=== PATIENT | female | born 1950 | race Caucasian/White ===

== ENCOUNTER 2020-02-08 17:43 | Inpatient (IN) | payer OTHER, SELFPAY ==
[~2020-02-08] VITALS: Ht 160 cm; Wt 145.1 kg
[~2020-02-08 17:43] MED LIST: ATEN100T PO; CEFAZOLIN 1 GM IVPB PREMIX 50 ML IV ONE; DILT180C89 PO; ETOMIDATE 20 MG/ 10 ML VIAL (AMIDATE) IVP ONE; GLYCOPYRROLATE 0.2 MG/ML VIAL IJ ONE; HYDR25TA4 PO; HYDROmorphone 2 MG/ML VIAL IVP ONE; INSU100V9 SQ; LIDOCAINE 1% 10 MG/ML, 20 ML MDV IM ONE; LISI40TA4 PO; METOCLOPRAMIDE HCL 10 MG/2 ML VIAL IVP ONE; NS 1000 ML IV.SOLN IV ONE; NS IRRIG SOLN 1000 ML IR ONE; ONDANSETRON HCL 4 MG/2 ML VIAL IVP ONE; PHENYLEPHRINE HCL 10 MG/ML VIAL (NEOSYNEPHRINE) IV ONE; ROCURONIUM BROMIDE 10 MG/ML (ZEMURON) IV ONE; SEVOFLURANE 15 MIN GAS INH ONE; ePHEDrine sulfate 50 MG/ML VIAL IVP ONE; fentaNYL CITRATE 250 MCG/5 ML AMP IV ONE
[2020-02-08 17:48] VITALS: BP_SYST 122
--- NOTE | 2020-02-08 17:48 | NUR ---
Patient to ER bed 04 to gown for evaluation. Side rails up. Report given to ELSA Pillai
--- NOTE | 2020-02-08 18:01 | NUR ---
Pt came to ER via BLS ambulance after she fell this morning at 0600. Pt complains of L leg pain 7/10 with activity, resting in gurney, noapparent distress, VSS
--- NOTE | 2020-02-08 18:29 | NUR ---
ER Dr. Lovett at bedside examining patient.
[2020-02-08] MEDS ORDERED: KETOROLAC TROMETHAMINE 60 MG/2 ML VIAL IM ONE (18:30)
[2020-02-08] MEDS ORDERED: BACITRACIN 1 GM OINT TP ONE (18:50)
--- NOTE | 2020-02-08 19:21 | NUR ---
REPORT RECEIVED FROM ELSA NGUYỄN
--- NOTE | 2020-02-08 19:45 | NUR ---
Patient transported to radiology via GURNEY, accompanied by STAFF.
--- NOTE | 2020-02-08 20:57 | NUR ---
PORTABLE X-RAY AT THE BEDSIDE
[2020-02-08] MEDS ORDERED: NACL 0.9% 1,000 ML IV ONE (21:30)
--- NOTE | 2020-02-08 21:45 | NUR ---
LONG POSTERIOR LEG splint applied to LEFT LEG. DORSALIS PEDIS AND POSTERIOR TIBIAL pulses noted. Capillary refill <3 seconds. Patient has ability to move non-splinted digits. Has sensation present to affected site. Skin color within normal limits. Applied for pain management control.
--- NOTE | 2020-02-08 22:00 | NUR ---
# 20 gauge angiocath placed to LAC. Use of asceptic technique. Opsite placed over site. Blood return noted. Blood for lab drawn from site. Flushed with 10 cc of normal saline. No evidence of infiltration noted. Patient tolerated well.
[2020-02-08] MEDS ORDERED: MORPHINE 4 MG/ML INJ. SYRINGE IVP PRN (22:15)
[2020-02-08] MEDS ORDERED: D5/0.45 NS 1,000 ML IV SCH (22:15)
[2020-02-08] MEDS ORDERED: LEVO25TA7 PO (22:25)
[2020-02-08] MEDS ORDERED: LOSA25TA18 PO (22:25)
[2020-02-08] MEDS ORDERED: LIP20 PO (22:25)
--- NOTE | 2020-02-08 22:25 | NUR ---
Medication reconciliation completed with information provided by AMEYA Ulloa RN. Any prior medication reconciliation on file was reviewed and corrected.
[2020-02-08 22:34] LABS: BASOPHILS % (AUTO) 0.3 % (0.0-2.0); EOSINOPHILS % (AUTO) 0.2 % (0.0-4.0); HEMATOCRIT 31.4 % (36-48); HEMOGLOBIN 10.5 g/dL (12.0-16.0); LYMPHOCYTES # (AUTO) 0.6 K/uL (1.0-5.5); LYMPHOCYTES % (AUTO) 7.6 % (20.5-51.5); MEAN CORPUSCULAR HEMOGLOBIN 31 pg (27-31); MEAN CORPUSCULAR HGB CONC 34 % (32-36); MEAN CORPUSCULAR VOLUME 91 fL (79.0-98.0); MONOCYTES # (AUTO) 0.9 K/uL (0.0-1.0); MONOCYTES % (AUTO) 10.8 % (1.7-9.3); NEUTROPHILS # (AUTO) 6.6 K/uL (1.8-7.7); NEUTROPHILS % (AUTO) 81.1 % (40.0-70.0); PLATELET COUNT (AUTO) 309 K/uL (130-430); RED BLOOD CELL COUNT(AUTO) 3.43 MIL/uL (4.2-6.2); RED CELL DISTRIBUTION WIDTH 13.8 % (9.0-15.0); WHITE BLOOD COUNT (AUTO) 8.2 K/uL (4.8-10.8)
--- NOTE | 2020-02-08 22:34 | NUR ---
Patient will be admitted to care of DR. ADAM. Admitted to MS unit. Will go to room 101B. Belongings list completed. Complete and up to date summary report printed. SBAR report to be given at bedside with opportunity for questions.
[2020-02-08 22:46] LABS: CALCIUM 8.2 mg/dL (8.4-11.0); CREATININE 1.84 mg/dL (0.55-1.30); POTASSIUM 3.2 mmol/L (3.5-5.1)
[2020-02-08 22:50] LABS: PROTHROMBIN TIME 10.4 SECS (9.5-12.5)
[2020-02-08 22:52] LABS: ALBUMIN 1.6 g/dL (3.4-4.8); TOTAL BILIRUBIN 0.4 mg/dL (0.0-1.0)
[2020-02-08] MEDS ORDERED: POTASSIUM CHLORIDE 10 MEQ TAB.PRT.SR PO ONE (23:00)
--- NOTE | 2020-02-08 23:39 | NUR ---
ADMISSION NOTE Received patient from ER via gurney. Patient admitted with diagnosis of LEFT FEMUR FRACTURE. Patient is awake, alert, oriented X 4. Patient oriented to hospital room, call light, toileting, pain management and safety-teach back done. Patient informed that AFFIE will be nurse and that their room number is 101A. Personal belongings checked and Belongings List documented. Call light within reach.
--- NOTE | 2020-02-08 23:52 | NUR ---
CONSULTATION PAGED/CALLED Reason for Consultation: FEMUR FRACTURE Person Who was Notified: BILLY Consulting Physician: ALY. Appeals Coordinator Specialty: ORTHO Ordering Physician: Cristina CERVANTES HE DOES NOT TAKE HER INSURANCE
[2020-02-08 23:53] VITALS: BP_SYST 100
[2020-02-09] MEDS ORDERED: MORPHINE 4 MG/ML INJ. SYRINGE IVP PRN
[2020-02-09] MEDS ORDERED: NALOXONE HCL 0.4 MG/ML AMP (NARCAN) IVP PRN
[2020-02-09] MEDS ORDERED: MORPHINE 2 MG/ML INJ. SYRINGE IVP PRN
[2020-02-09] MEDS ORDERED: ONDANSETRON HCL 4 MG/2 ML VIAL IVP PRN
[2020-02-09] MEDS ORDERED: LORazepam 2 MG/ML VIAL IVP PRN
--- NOTE | 2020-02-09 00:07 | NUR ---
PAGED PAGED DOCTOR Cristina PURDY
[2020-02-09] MEDS ORDERED: FLU VACC QS2020-21(65UP)/PF 0.7 ML/SYRINGE I.M. PRN (00:15)
--- NOTE | 2020-02-09 00:33 | NUR ---
CANCELLED CONSULT CANCELED THE CONSULT FOR DOCTOR LU.
--- NOTE | 2020-02-09 01:45 | NUR ---
CONSULTATION PAGED/CALLED Reason for Consultation: FEMUR FRACTURE Person Who was Notified: SHAMA Consulting Physician: MOIZ GOYAL It Security Manager Specialty: ORTHO Ordering Physician: Cristina PURDY
[2020-02-09 01:57] LABS: BILIRUBIN,URINE 1+ (NEGATIVE); CLARITY/URINE TURBID (CLEAR); COLOR,URINE YELLOW (YELLOW); GLUCOSE,URINE NEGATIVE (NEGATIVE); KETONES,URINE TRACE (NEGATIVE); LEUKOCYTE ESTERASE ,URINE 2+ (NEGATIVE); NITRITE, URINE NEGATIVE (NEGATIVE); PH,URINE 8.5 (5.0-8.0); PROTEIN URINE 2+ (NEGATIVE); UROBILINOGEN,URINE 0.2 (0.2-1.0)
[2020-02-09 02:02] LABS: BLOOD, URINE TRACE (NEGATIVE)
[2020-02-09 02:08] LABS: BACTERIA,URINE MODERATE /HPF (None Seen); WBC,URINE 50-80 /HPF (0-3)
--- NOTE | 2020-02-09 02:30 | NUR ---
RN ROUNDS: PATIENT IS IN THE BED, SLEEPING. RESPIRATION IS NON-LABORED AND EVEN. NO S/S ACUTE DISTRESS NOTED. IVF INFUSING ORDERED RATE. SAFETY AND FALL PRECAUTIONS MAINTAINED. CALL LIGHT IS WITH PATIENT. WILL CONTINUE TO MONITOR.
--- NOTE | 2020-02-09 04:10 | NUR ---
RN ROUNDS: PATIENT ASLEEP. NO S/S ACUTE DISTRESS NOTED. IVF INFUSING ORDERED RATE. RESPIRATION IS EVEN AND NON-LABORED ON RA. SAFETY AND FALL PRECAUTIONS ARE IN PLACE. CALL LIGHT IS WITH PATIENT. WILL CONTINUE TO MONITOR.
[2020-02-09 06:14] LABS: BASOPHILS % (AUTO) 0.5 % (0.0-2.0); EOSINOPHILS % (AUTO) 0.8 % (0.0-4.0); HEMATOCRIT 25.3 % (36-48); HEMOGLOBIN 8.5 g/dL (12.0-16.0); LYMPHOCYTES # (AUTO) 0.7 K/uL (1.0-5.5); LYMPHOCYTES % (AUTO) 11.4 % (20.5-51.5); MEAN CORPUSCULAR HEMOGLOBIN 31 pg (27-31); MEAN CORPUSCULAR HGB CONC 34 % (32-36); MEAN CORPUSCULAR VOLUME 91 fL (79.0-98.0); MONOCYTES # (AUTO) 0.7 K/uL (0.0-1.0); MONOCYTES % (AUTO) 11.3 % (1.7-9.3); NEUTROPHILS # (AUTO) 4.6 K/uL (1.8-7.7); PLATELET COUNT (AUTO) 232 K/uL (130-430); RED BLOOD CELL COUNT(AUTO) 2.77 MIL/uL (4.2-6.2); RED CELL DISTRIBUTION WIDTH 14.1 % (9.0-15.0)
[2020-02-09 06:19] LABS: CALCIUM 7.5 mg/dL (8.4-11.0); CREATININE 1.66 mg/dL (0.55-1.30); POTASSIUM 3.2 mmol/L (3.5-5.1)
[2020-02-09] MEDS: INSULIN REGULAR, HUMAN 100 UNITS/ML, 10 ML VIAL (humuLIN R) SUBCUT PRN ×4 (06:36→21:27)
--- NOTE | 2020-02-09 06:45 | NUR ---
CLOSING NOTE: PATIENT GIVEN FLU VACCINE. MORNING FASTING BG IS 206 MG/dL. 4 UNITS OF INSULIN ADMINISTERED. PATIENT TOLERATED WELL. NO S/S ACUTE DISTRESS NOTED. RESPIRATION IS EVEN AND NON-LABORED. BAGLEY CATHETER IS DRAINING TO GRAVITY. SAFETY AND FALL PRECAUTIONS ARE IN PLACE. CALL LIGHT IS WITH PATIENT. ALL NEEDS MET THROUGHOUT THE SHIFT. WILL ENDORSE PATIENT CARE TO DAY SHIFT RN.
--- NOTE | 2020-02-09 07:20 | NUR ---
OPENING NOTES PT AWAKE, ALERT, AND ORIENTED. NONLABORED BREATHING NOTED ON ROOM AIR. PT DENIES PAIN AND SOB AT THIS TIME. IV LINE INTACT AND PATENT, NO SIGNS OF INFILTRATION NOTED. BAGLEY CATHETER INTACT AND DRAINING. NO ACUTE DISTRESS NOTED. ALL NEEDS MET. CALL LIGHT IN REACH. FALL AND ASPIRATION PRECAUTIONS IN PLACE. CONTINUE TO MONITOR.
--- NOTE | 2020-02-09 07:59 | NUR ---
Nutrition Update Fermin scale 12 noted. Pt admitted for left femur fracture Diet: NPO BMI: 56.7 kg/m2 RD to follow per nutrition care standards.
[2020-02-09 08:00] VITALS: BP_SYST 113
[2020-02-09] MEDS: DILTIAZEM HCL 180 MG CAP.SR.24H PO SCH (08:58)
[2020-02-09] MEDS: ATENOLOL 50 MG TABLET (TENORMIN) PO SCH (08:58)
[2020-02-09] MEDS: LEVOTHYROXINE SODIUM 0.025 MG TABLET PO SCH (08:58)
[2020-02-09] MEDS: ATORVASTATIN 20 MG TABLET PO SCH (08:58)
[2020-02-09] MEDS ORDERED: lisinopriL 20 MG TABLET PO SCH (09:00)
[2020-02-09] MEDS: MORPHINE 2 MG/ML INJ. SYRINGE IVP PRN ×2 (09:00→13:41)
[2020-02-09] MEDS ORDERED: LOSARTAN POTASSIUM 25 MG TABLET PO SCH (09:00)
[2020-02-09] MEDS ORDERED: HYDROCHLOROTHIAZIDE 25 MG TABLET (HCTZ) PO SCH (09:00)
[2020-02-09] MEDS ORDERED: cefTRIAXone 1 GM IVPB PREMIX 50 ML IV ONE (09:30)
--- NOTE | 2020-02-09 09:59 | NUR ---
SPOKE TO DR. QUIROZ REGARDING POTASSIUM LEVEL, RECEIVED ORDERS, VERIFIED, AND CARRIED OUT. STATED OK TO GIVE PO.
[2020-02-09] MEDS ORDERED: POTASSIUM CHLORIDE 20 MEQ TAB.PRT.SR PO ONE (10:00)
--- NOTE | 2020-02-09 10:00 | NUR ---
HIGH ALERT NOTE: SPOKE TO DR. QUIROZ IN PERSON AT NURSE'S STATION identified within the medical roster to verify physician authenticity.
[2020-02-09] MEDS: D5NS 1,000 ML IV SCH (10:27)
--- NOTE | 2020-02-09 10:37 | NUR ---
ROUTINE MEDS ADMINISTERED ORDERED PER MD, EDUCATION GIVEN, TOLERATED WELL. CONTINUE TO MONITOR.
--- NOTE | 2020-02-09 10:56 | NUR ---
ACCUCHECK DONE, INSULIN COVERAGE ADMINISTERED PER SLIDING SCALE, EDUCATION GIVEN, TOLERATED WELL. CONTINUE TO MONITOR.
[2020-02-09 11:27] VITALS: BP_SYST 108
--- NOTE | 2020-02-09 13:12 | NUR ---
WOUND CARE DONE WITH JAY, TOLERATED WELL. SEEN BY DR. GOYAL AT BEDSIDE.
--- NOTE | 2020-02-09 13:49 | NUR ---
WOUND EVALUATION: Wound Consult received from Dr. Layne. Thank you, Dr. Layne, for the consult. Patient received in a [place] Bed with an Isoflex JADIEL mattress with low air loss therapy initiated, awake, alert, oriented x 4. Patient is unable to turn in bed independently secondary to left femoral fracture. Fermin Score is a 12. Past Medical History: Diabetes Mellitus, Hypertension, CKD, Renal Insufficiency. Patient admitted secondary to left femoral fracture post mechanical fall. Recent Labs: WBC 6.0, RBC 2.77, hemoglobin 8.5, hematocrit 25.3, potassium 3.2, chloride 109, BUN 32, creatinine 1.66, GFR 32, glucose 221, POC glucose 207, calcium 7.5, alkaline phosphatase 139, serum total protein 4.8, albumin 1.6, PTT 21.8. Microbiology: Urine culture results in progress. Intrinsic factors that delay wound healing: Diabetes Mellitus, CKD/Renal Insufficiency. Extrinsic factors that delay wound healing: Decreased mobility. Left lower extremity has a splint secured by elastic bandage. Wound Assessment: 1. Right Posterior Medial Calf: Wound of unknown etiology, present on admission. Wound bed has 60% white tissue, 40% pink tissue. No odor, scant sanguineous drainage. Periwound intact. Wound measures 6.5 cm x 6.0 cm. Recommend: Cleanse wound with normal saline. Apply moisture barrier cream to nagi-wound. Apply Venelex ointment to wound bed. Cover with non-adhesive foam dressing(s), then wrap with nai wrap. Perform wound care daily, and as needed for dressing soiling or dislodgement. 2. Left Proximal Medial Thigh: Wound of unknown etiology, present on admission. Wound bed has 90% yellow tissue, 10% pink tissue. No odor, scant yellow drainage. Periwound intact. Wound measures 1.0 cm x 0.8 cm x 0.2 cm. Recommend: Cleanse wound with normal saline. Apply moisture barrier cream to nagi-wound. Apply Venelex ointment to wound bed. Cover with foam dressing. Perform wound care daily, and as needed for dressing soiling or dislodgement. 3. Left Hallux: Chronic ischemic wound, present on admission. Wound bed has 100% brown scab. No odor, no drainage. Periwound intact. Wound measures 0.7 cm x 0.7 cm. 4. Right Second Toe: Chronic ischemic wound, present on admission. Wound bed has 100% black scab. No odor, no drainage. Periwound intact. Wound measures 0.4 cm x 0.3 cm. Recommend: No dressings needed. [place] wound sites with Betadine daily. Continue to monitor sites every shift. 5. Right Posterior Occipital area: Chronic wound, present on admission. Wound bed has 100% brown scab. No odor, no drainage. Dry, stable. Scab measures 1.0 cm x 0.7 cm. Recommend: Cover site with non-adhesive foam dressing. Secure in place with hair net. Change dressing and assess site daily, and as needed for dressing soiling or dislodgment. 6. Sacral area: Multiple areas of light pink scar tissue, present on admission. Recommend: Cleanse involved areas with mild soap and water. Pat dry. Apply moisture barrier cream to involved areas. Perform site care 4 times a day as needed for soiling. Also recommend: Reposition patient side to side only every 2 hours with pillow support and off-load pressure areas with pillows for pressure re-distribution. Offload, elevate and float bilateral heels with one pillow lengthwise under each extremity at all times. Perform skin care and monitor skin integrity Q shift. Use moisture barrier cream on buttocks and other moisture susceptible areas QID and as needed for soiling. Place patient on a low air-loss mattress.
--- NOTE | 2020-02-09 13:50 | NUR ---
PT C/O PAIN, CHECKED BP, ADMINISTERED PAIN MEDS ORDERED PER MD, EDUCATION GIVEN, TOLERATED WELL. CONTINUE TO MONITOR.
--- NOTE | 2020-02-09 14:12 | NUR ---
SPOKE TO DR. QUIROZ REGARDING PT'S NPO STATUS. DR. GOYAL STATED AT BEDSIDE THAT SURGERY MAY BE ON SATURDAY, DR. QUIROZ AWARE, STATED WILL SPEAK TO DR. GOYAL. NO NEW ORDERS RECEIVED. PT NPO AT THIS TIME.
--- NOTE | 2020-02-09 14:50 | NUR ---
ROUNDS PT BACK FROM RADIOLOGY. NO ACUTE DISTRESS NOTED. ALL NEEDS MET. CALL LIGHT IN REACH. CONTINUE TO MONITOR.
[2020-02-09] MEDS ORDERED: BALSAM PERU/CASTOR OIL 60 GM OINT...G. TP ONE (15:00)
[2020-02-09 16:03] VITALS: BP_SYST 92
[2020-02-09 17:00] VITALS: BP_SYST 111
--- NOTE | 2020-02-09 17:57 | NUR ---
SPOKE TO DR. GOYAL'S NURSE PRACTITIONER VINOD SCOTT, RECEIVED ORDERS, VERIFIED, AND CARRIED OUT.
--- NOTE | 2020-02-09 18:03 | NUR ---
SPOKE TO DR. GOYAL REGARDING CLARIFICATION ON ORDERS AND THE SURGERY PLANNED FOR THE PATIENT TOMORROW. MD AWARE OF PT'S WOUNDS AND LAB VALUES. RECEIVED ORDERS, VERIFIED, AND CARRIED OUT.
--- NOTE | 2020-02-09 18:05 | NUR ---
HIGH ALERT NOTE: Called MOIZ Ford back at [phone] identified within the medical roster to verify physician authenticity.
--- NOTE | 2020-02-09 18:07 | NUR ---
HAD DR. GOYAL ON THE PHONE WITH PATIENT REGARDING PLANNED SURGERY TOMORROW. PT VERBALIZED UNDERSTANDING AND HAS NO FURTHER QUESTIONS AT THIS TIME. CONTINUE TO MONITOR.
--- NOTE | 2020-02-09 18:49 | NUR ---
CLOSING NOTES PT AWAKE, ALERT, AND ORIENTED, EATING DINNER SITTING UP IN BED. NONLABORED BREATHING NOTED ON ROOM AIR. PT DENIES PAIN AND SOB AT THIS TIME. IV LINE INTACT AND PATENT, NO SIGNS OF INFILTRATION NOTED, FLUIDS RUNNING ORDERED. BAGLEY CATHETER INTACT AND DRAINING. NO ACUTE DISTRESS NOTED. ALL NEEDS MET. CALL LIGHT IN REACH. FALL AND ASPIRATION PRECAUTIONS IN PLACE. WILL ENDORSE TO NOC NURSE INCLUDING PT BEING NPO AFTER MIDNIGHT AND PLANNED SURGERY TOMORROW AT 1500.
--- NOTE | 2020-02-09 19:20 | NUR ---
OPENING NOTE: RECEIVED SBAR REPORT FROM DAY SHIFT RN. PATIENT IS IN THE BED, AWAKE, ALERT AND ORIENTED X4. DENIES PAIN. BAGLEY CATHETER IS DRAINING TO GRAVITY. IVF INFUSING ORDERED RATE. VITAL SIGNS ARE WITHIN NORMAL LIMITS. RESPIRATION IS EVEN AND NON-LABORED. SAFETY AND FALL PRECAUTIONS ARE IN PLACE. WILL MONITOR.
[2020-02-09 20:00] VITALS: BP_SYST 118
--- NOTE | 2020-02-09 20:34 | NUR ---
PAGED DOCTOR MOIZ GOYAL
[2020-02-09] MEDS ORDERED: INSULIN GLARGINE 100 UNITS/ML 10 ML VIAL SQ SCH (21:00)
[2020-02-09] MEDS ORDERED: ENOXAPARIN SODIUM 40 MG/0.4 ML SYRINGE SUBCUT ONE (21:00)
--- NOTE | 2020-02-09 21:23 | NUR ---
MED PASS: PATIENT GIVEN LOVENOX. BG IS 251 MG/dL. 6 UNITS OF REGULAR INSULIN ADMINISTERED. NO S/S ACUTE DISTRESS NOTED. PATIENT EDUCATED REGARDING HYPO AND HYPERGLYCEMIA S/S. SAFETY AND FALL PRECAUTIONS ARE IN PLACE. WILL CONTINUE TO MONITOR.
[2020-02-10] VITALS (11 sets, daily range): BP systolic 79–116
--- NOTE | 2020-02-10 00:20 | NUR ---
RN ROUNDS: PATIENT IS IN THE BED, IN ASLEEP. RESPIRATION IS EVEN AND UNLABORED ON RA. IVF INFUSING. NO SIGN OF INFILTRATION NOTED. BAGLEY CATHETER IS DRAINING TO GRAVITY. SAFETY AND FALL PRECAUTIONS ARE IN PLACE. CALL LIGHT IS WITH PATIENT. WILL CONTINUE TO MONITOR.
--- NOTE | 2020-02-10 02:45 | NUR ---
RN ROUNDS: PATIENT IS IN BED , SLEEPING. RESPIRATION IS EVEN AND UNLABORED. IVF INFUSING ORDERED RATE. SAFETY AND FALL PRECAUTIONS ARE IN PLACE. CALL LIGHT IS WITH PATIENT. WILL CONTINUE TO MONITOR.
--- NOTE | 2020-02-10 04:10 | NUR ---
RN ROUNDS: PATIENT IS IN THE BED, SLEEPING. RESPIRATION IS NON-LABORED AND EVEN. NO S/S ACUTE DISTRESS NOTED. IVF INFUSING ORDERED RATE. BAGLEY CATHETER IS DRAINING TO GRAVITY. SAFETY AND FALL PRECAUTIONS MAINTAINED. CALL LIGHT IS WITH PATIENT. WILL CONTINUE TO MONITOR.
[2020-02-10] MEDS: D5NS 1,000 ML IV SCH (04:40)
[2020-02-10 06:35] LABS: BASOPHILS % (AUTO) 0.3 % (0.0-2.0); EOSINOPHILS # (AUTO) 0.1 K/uL (0.0-0.4); EOSINOPHILS % (AUTO) 1.7 % (0.0-4.0); HEMATOCRIT 25.3 % (36-48); HEMOGLOBIN 8.5 g/dL (12.0-16.0); LYMPHOCYTES # (AUTO) 0.8 K/uL (1.0-5.5); LYMPHOCYTES % (AUTO) 13.7 % (20.5-51.5); MEAN CORPUSCULAR HEMOGLOBIN 31 pg (27-31); MEAN CORPUSCULAR HGB CONC 34 % (32-36); MEAN CORPUSCULAR VOLUME 91 fL (79.0-98.0); MONOCYTES # (AUTO) 0.7 K/uL (0.0-1.0); MONOCYTES % (AUTO) 11.7 % (1.7-9.3); NEUTROPHILS % (AUTO) 72.6 % (40.0-70.0); PLATELET COUNT (AUTO) 226 K/uL (130-430); RED BLOOD CELL COUNT(AUTO) 2.78 MIL/uL (4.2-6.2); RED CELL DISTRIBUTION WIDTH 14.3 % (9.0-15.0); WHITE BLOOD COUNT (AUTO) 5.5 K/uL (4.8-10.8)
[2020-02-10] MEDS: INSULIN REGULAR, HUMAN 100 UNITS/ML, 10 ML VIAL (humuLIN R) SUBCUT PRN ×3 (06:43→18:44)
--- NOTE | 2020-02-10 06:58 | NUR ---
CLOSING NOTE: MORNING ACCUCHEK BG IS 215 MG/dL. 4 UNITS OF INSULIN ADMINISTERED. PATIENT TOLERATED WELL. NO S/S ACUTE DISTRESS NOTED. IVF INFUSING ORDERED RATE. RESPIRATION IS EVEN AND NON-LABORED. BAGLEY CATHETER IS DRAINING TO GRAVITY. SAFETY AND FALL PRECAUTIONS ARE IN PLACE. CALL LIGHT IS WITH PATIENT. ALL NEEDS MET THROUGHOUT THE SHIFT. WILL ENDORSE PATIENT CARE TO DAY SHIFT RN.
[2020-02-10 06:59] LABS: ALBUMIN 1.1 g/dL (3.4-4.8); CALCIUM 7.3 mg/dL (8.4-11.0); CREATININE 1.22 mg/dL (0.55-1.30); POTASSIUM 3.4 mmol/L (3.5-5.1); TOTAL BILIRUBIN 0.2 mg/dL (0.0-1.0)
[2020-02-10] MEDS: DILTIAZEM HCL 180 MG CAP.SR.24H PO SCH (08:14)
[2020-02-10] MEDS: LEVOTHYROXINE SODIUM 0.025 MG TABLET PO SCH (08:16)
[2020-02-10] MEDS: BALSAM PERU/CASTOR OIL 60 GM OINT...G. TP SCH (08:16)
[2020-02-10] MEDS: ATENOLOL 50 MG TABLET (TENORMIN) PO SCH (08:16)
[2020-02-10] MEDS: ATORVASTATIN 20 MG TABLET PO SCH (08:16)
--- NOTE | 2020-02-10 08:17 | NUR ---
medication/opening note report was endorsed by night nurse. Patient is awake and alert. no signs of any distress, educated consumer electronic retail specialist light, call light is with patient. patient has all safety precautions in place. Patients scheduled oral medication held due to NPO for surgery. Patient is aware of surgery, and blood transfusion with no further questions. no other needs at this time.
--- NOTE | 2020-02-10 08:21 | NUR ---
HIGH ALERT NOTE: spoke to dr. pa at nurse's station in person, identified within the medical roster to verify physician authenticity.
[2020-02-10] MEDS ORDERED: POTASSIUM CHLORIDE 20 MEQ TAB.PRT.SR PO ONE (08:30)
--- NOTE | 2020-02-10 09:46 | NUR ---
Dietitian Recommendations *Recommend slowly advance diet to [facility] Diet after procedure as tolerated per MD. *If pt's PO intake appears to be suboptimal, recommend Glucerna BID to provide additional 440 kcal and 20 g protein to promote PO intake and healing. Please see Nutrition Assessment for details. JONO QUIÑONES
--- NOTE | 2020-02-10 09:48 | NUR ---
BT INITIATION: Consent signed per patient agreeing to administration of blood. Blood has been type and crossmatched. Blood sent from blood bank. Information on unit of blood checked against patient wristband at bedside by two nurses. All information matches. Patient or responsible democrat informed of potential complications associated with blood transfusion. Informed of possible transfusion reaction symptoms. Aware of need to notify nurse at once of itching, shortness of breath, flushing, feeling of impending doom, or other symptoms not previously present. Vital signs taken within 5 minutes prior to initiation of transfusion. RN will remain with patient for first 15 minutes of transfusion at which time vital signs will be re-assessed.
--- NOTE | 2020-02-10 10:03 | NUR ---
BT 15 minutes after Pt denies any transfusion reaction symptoms including itching, shortness of breath, flushing, feeling of impending doom, or other symptoms not previously present. Vital signs stable 98.6 temp, 68 HR, 19 resp, 105/48 BP. continue to monitor.
--- NOTE | 2020-02-10 10:18 | NUR ---
MEDICATION PATIENTS SCHEDULED DOSED OF POTASSIUM GIVEN ORDERED OK TO GIVE PER . PATIENT TOLERATED WELL. ALL SAFETY PRECAUTIONS IN PLACE. CALL LIGHT IS WITH PATIENT. EDUCTED TO USE FOR ASSISTANCE NO OTHER NEEDS AT THIS TIME.
--- NOTE | 2020-02-10 11:00 | NUR ---
IV RE-INSERTION: IV RE-INSERTION FOR SX. Restarted on RIGHT FOREARM BY ELSA WHITE. PT RECEIVING BLOOD TRANSFUSION AT THIS TIME ON ANOTHER IV LINE. Will observe for any signs of infiltration.
--- NOTE | 2020-02-10 11:20 | NUR ---
ACCU CHECK PATIENTS ACCU CHECK DONE, COVERAGE WAS ALSO GIVEN ORDERED. PATIENT IS AWAKE AND ALERT SITTING UP IN BED, NO SIGNS OF ANY DISTRESS, BREATHING IS EQUAL AND NON LABORED. PATIENT EDUCATED TO USE CALL LIGHT FOR ASSISTANCE. CALL LIGHT IS WITH PATIENT. PATIENT HAS NO OTHER NEEDS AT THIS TIME. PATIENT DENIES ANY SIDE EFFECTS FROM BLOOD TRANSFUSION.
--- NOTE | 2020-02-10 12:43 | NUR ---
BLOOD TRANSFUSION FINISHED. PT AWAKE AND ALERT, DENIES ANY S/S OF BLOOD TRANSFUSION REACTIONS. VITAL SIGNS STABLE. 97.1 TEMP, 71 HR, 18 RESP, 110/51, 99% O2. CONTINUE TO MONITOR.
[2020-02-10 13:31] LABS: BASOPHILS % (AUTO) 0.7 % (0.0-2.0); EOSINOPHILS # (AUTO) 0.1 K/uL (0.0-0.4); EOSINOPHILS % (AUTO) 2.1 % (0.0-4.0); HEMATOCRIT 31.1 % (36-48); HEMOGLOBIN 10.6 g/dL (12.0-16.0); LYMPHOCYTES # (AUTO) 0.8 K/uL (1.0-5.5); MEAN CORPUSCULAR HEMOGLOBIN 31 pg (27-31); MEAN CORPUSCULAR HGB CONC 34 % (32-36); MEAN CORPUSCULAR VOLUME 91 fL (79.0-98.0); MONOCYTES # (AUTO) 0.9 K/uL (0.0-1.0); MONOCYTES % (AUTO) 13.7 % (1.7-9.3); NEUTROPHILS # (AUTO) 4.4 K/uL (1.8-7.7); NEUTROPHILS % (AUTO) 70.5 % (40.0-70.0); PLATELET COUNT (AUTO) 219 K/uL (130-430); RED BLOOD CELL COUNT(AUTO) 3.42 MIL/uL (4.2-6.2); RED CELL DISTRIBUTION WIDTH 13.8 % (9.0-15.0); WHITE BLOOD COUNT (AUTO) 6.2 K/uL (4.8-10.8)
--- NOTE | 2020-02-10 14:00 | NUR ---
SURGERY PATIENT PICKED UP FOR SURGERY VIA HOSPITAL BED AND SURGICAL NURSE. PATIENTS CHART GIVEN TO NURSE. NO OTHER NEEDS AT THIS TIME.
[2020-02-10] MEDS ORDERED: POLYMYXIN 500,000/BACIT.10,000 UNITS in NS IRR 1 L IR ONE (14:45)
--- NOTE | 2020-02-10 16:36 | NUR ---
PAGING DR. QUIROZ FOR POSITIVE URINE DIP. WAITING FOR CALL BACK
[2020-02-10] MEDS ORDERED: ONDANSETRON HCL 4 MG/2 ML VIAL IVP PRN (17:15)
[2020-02-10] MEDS ORDERED: METOCLOPRAMIDE HCL 10 MG/2 ML VIAL IVP PRN (17:15)
[2020-02-10] MEDS ORDERED: LR 1,000 ML IV SCH (17:15)
[2020-02-10] MEDS ORDERED: HYDROmorphone 1 MG INJ. 1 MG/ML AMPUL IVP PRN ×2 (17:15)
--- NOTE | 2020-02-10 18:04 | NUR ---
SPOKE WITH DR. QUIROZ RECEIVED ORDERS FOR URINE CX. PATIENT IS NOT BACK TO FLOOR YET FROM SURGERY.
--- NOTE | 2020-02-10 18:25 | NUR ---
PT RETURNED FROM O.R. PT AWAKE AND ALERT. VITAL SIGNS STABLE, BP RUNNING 90s-100s per O.R. nurse IN PACU. VITAL SIGNS: 99/47, 100%O2, RECEIVING O2 AT LPM VIA NASAL CANNULA, TOLERATING WELL, HR73, TEMP 96.2. PT DENIES PAIN, N/V, SOB, AND LIGHTHEADEDNESS AT THIS TIME. PT VERBALIZES UNDERSTANDING OF INCENTIVE SPIROMETER, HIGHEST 1200ML, SURGICAL DRESSING AND MELODY WRAP C/D/I. BILATERAL FEET SCD'S INTACT AND ON. CONTINUE TO MONITOR.
--- NOTE | 2020-02-10 18:50 | NUR ---
CLOSING NOTES PT AWAKE, ALERT, AND ORIENTED. ACCUCHECK DONE, INSULIN ADMINISTERED PER SLIDING SCALE, TOLERATED WELL. IV LINE INTACT AND PATENT, NO SIGNS OF INFILTRATION NOTED, FLUIDS RUNNING ORDERED PER MD, TOLERATING WELL. SURGICAL DRESSING AND MELODY WRAP C/D/I. PT DENIES PAIN AND SOB AT THIS TIME. RECEIVING O2 AT 2LPM VIA NASAL CANNULA, TOLERATING WELL. NO ACUTE DISTRESS NOTED. BILATERAL FEET SCD'S INTACT AND PATENT. ALL NEEDS MET. CALL LIGHT IN REACH. FALL AND ASPIRATION PRECAUTIONS IN PLACE. WILL ENDORSE TO NOC NURSE, INCLUDING WOUND CARE.
[2020-02-11] VITALS (7 sets, daily range): BP systolic 107–119
--- NOTE | 2020-02-11 05:30 | NUR ---
UNABLE TO TAKE PHOTOS: CAMERA NOT AVAILABLE. WILL NOTIFY DAYSHIFT NURSE.
[2020-02-11] MEDS: INSULIN REGULAR, HUMAN 100 UNITS/ML, 10 ML VIAL (humuLIN R) SUBCUT PRN ×4 (06:58→21:32)
--- NOTE | 2020-02-11 07:45 | NUR ---
OPENING NOTE Patient resting in the bed. No acute distress. AAO x 4. Denied of pain. Skin warm and dry to touch. IV intact to LAC and RFA, no redness, no swelling, patent. On D5 NS at 60ml/hr, infusing well. Left leg intact with surgical dressing, no bleeding noted. F/C intact, drain gravity. Safety measure maintained. Call light within reached. Bed locked in low position, side rails up, bed alarm on. Will continue to monitor.
--- NOTE | 2020-02-11 07:50 | NUR ---
CLOSING NOTE: Patient is resting in bed. Insulin given per sliding scale. She does not have any complaints of pain or discomfort. Patient is in stable condition. Left leg dressing is intact. IV is patent and intact. Velasquez draining to gravity. All needs were met throughout shift. Report given to dayshift nurse.
[2020-02-11 08:00] LABS: BASOPHILS % (AUTO) 0.5 % (0.0-2.0); EOSINOPHILS % (AUTO) 0.2 % (0.0-4.0); HEMATOCRIT 28.6 % (36-48); HEMOGLOBIN 9.6 g/dL (12.0-16.0); LYMPHOCYTES # (AUTO) 0.5 K/uL (1.0-5.5); LYMPHOCYTES % (AUTO) 7.6 % (20.5-51.5); MEAN CORPUSCULAR HEMOGLOBIN 31 pg (27-31); MEAN CORPUSCULAR HGB CONC 34 % (32-36); MEAN CORPUSCULAR VOLUME 92 fL (79.0-98.0); MONOCYTES # (AUTO) 0.7 K/uL (0.0-1.0); MONOCYTES % (AUTO) 9.3 % (1.7-9.3); NEUTROPHILS # (AUTO) 5.8 K/uL (1.8-7.7); NEUTROPHILS % (AUTO) 82.4 % (40.0-70.0); PLATELET COUNT (AUTO) 225 K/uL (130-430); RED BLOOD CELL COUNT(AUTO) 3.12 MIL/uL (4.2-6.2); RED CELL DISTRIBUTION WIDTH 13.8 % (9.0-15.0)
[2020-02-11] MEDS: ATENOLOL 50 MG TABLET (TENORMIN) PO SCH (09:00)
[2020-02-11] MEDS: ENOXAPARIN SODIUM 40 MG/0.4 ML SYRINGE SUBCUT SCH (10:15)
[2020-02-11] MEDS: LEVOTHYROXINE SODIUM 0.025 MG TABLET PO SCH (10:16)
[2020-02-11] MEDS: ATORVASTATIN 20 MG TABLET PO SCH (10:16)
[2020-02-11] MEDS: DILTIAZEM HCL 180 MG CAP.SR.24H PO SCH (10:25)
[2020-02-11] MEDS: BALSAM PERU/CASTOR OIL 60 GM OINT...G. TP SCH (10:26)
--- NOTE | 2020-02-11 10:28 | NUR ---
FT=721/50, HOLD ATENOLOL Ash Cunha in the unit, reported to Dr. Layne patient's TC=523/50, P=93, asked for Cardizam and Atenolol to be hold. Dr. Layne stated "give Cardizem and hold Atenolol".
[2020-02-11] MEDS: D5NS 1,000 ML IV SCH (10:40)
[2020-02-11 10:49] LABS: CALCIUM 7.2 mg/dL (8.4-11.0); CREATININE 1.3 mg/dL (0.55-1.30)
[2020-02-11 11:00] LABS: ALBUMIN 1.1 g/dL (3.4-4.8); TOTAL BILIRUBIN 0.3 mg/dL (0.0-1.0)
--- NOTE | 2020-02-11 12:15 | NUR ---
FX=099 Humulin R insulin 6 units given per sliding scale as ordered. Patient resting in the bed. No acute distress. Safety measure maintained. Call light within reached. Bed locked in low position, side rails up, bed alarm on. Continue to monitor.
--- NOTE | 2020-02-11 15:05 | NUR ---
ROUND Patient resting in the bed. No acute distress. Safety measure maintained. Call light within reached. Bed locked in low position, side rails up, bed alarm on. Continue to monitor.
--- NOTE | 2020-02-11 15:10 | NUR ---
WOUND RE-EVALUATION: Wound Consult received from Dr. Layne. Thank you, Dr. Layne, for the consult. Patient received in a [place] Bed with an Isoflex JADIEL mattress with low air loss therapy initiated, awake, alert, oriented x 4. Patient is unable to turn in bed independently secondary to left femoral fracture. Fermin Score is a 15. Past Medical History: Diabetes Mellitus, Hypertension, CKD, Renal Insufficiency. Patient admitted secondary to left femoral fracture post mechanical fall. Microbiology: Urine culture results Positive for Proteus Mirabilis and E. coli. MRSA screen results in progress. Intrinsic factors that delay wound healing: Diabetes Mellitus, CKD/Renal Insufficiency. Extrinsic factors that delay wound healing: Decreased mobility. Left lower extremity has a surgical dressing secured by elastic bandage (s/p Intramedullary Nailing of Left Distal Femur on 02/10/[address] Ashkan Monae). Wound Assessment: 1. Right Posterior Medial Calf: Wound of unknown etiology, present on admission. Wound bed has 10% white tissue, 90% pink tissue. No odor, scant sanguineous drainage. Periwound intact. Wound measures 6.3 cm x 6.0 cm. Recommend continue: Cleanse wound with normal saline. Apply Calmoseptine cream to nagi-wound. Apply Venelex ointment to wound bed. Cover with non-adhesive foam dressing(s), then wrap with nai wrap. Perform wound care daily, and as needed for dressing soiling or dislodgement. 2. Left Proximal Medial Thigh: Wound of unknown etiology, present on admission. Wound bed has 100% red tissue. No odor, scant serous drainage. Periwound intact. Wound measures 0.9 cm x 1.0 cm x 0.1 cm. Recommend continue: Cleanse wound with normal saline. Apply Calmoseptine cream to nagi-wound. Apply Venelex ointment to wound bed. Cover with foam dressing. Perform wound care daily, and as needed for dressing soiling or dislodgement. 3. Left Hallux: Chronic ischemic wound, present on admission. Wound bed has 100% brown scab. No odor, no drainage. Periwound intact. Wound measures 0.7 cm x 0.7 cm. 4. Right Second Toe: Chronic ischemic wound, present on admission. Wound bed has 100% black scab. No odor, no drainage. Periwound intact. Recommend continue: No dressings needed. [place] wound sites with Betadine daily. Continue to monitor sites every shift. 5. Right Posterior Occipital area: Chronic wound, present on admission. Wound bed has 100% brown scab. No odor, no drainage. Dry, stable. Recommend continue: Cover site with non-adhesive foam dressing. Secure in place with hair net. Change dressing and assess site daily, and as needed for dressing soiling or dislodgment. 6. Sacral/Buttocks areas: A. Multiple areas of light pink scar tissue, now some are open, present on admission. Recommend: Cleanse scar tissue areas with mild soap and water. Pat dry. Apply Calmoseptine cream to involved areas. Perform site care 4 times a day as needed for soiling. B. Right Buttock: Non-intact skin from IAD. Site has 100% red tissue. No odor, no drainage. Periwound intact. Site measures 1.5 cm x 0.8 cm. C. Left Outer Buttock: Shear Injury. Site has 100% red tissue. No odor, no drainage. Periwound intact. Site measures 1.3 cm x 0.5 cm. D. Left Perianal area: Non-intact skin from IAD. Site has 100% pink tissue. No odor, no drainage. Periwound intact. Site measures 0.5 cm x 0.5 cm. E. Inferior Gluteal Cleft: Intertrigo with non-intact skin from IAD. Site has 100% pink tissue. No odor, scant sanguineous drainage. Periwound intact. Site measures 1.5 cm x 0.4 cm. Recommend: Cleanse involved areas with normal saline. Pat dry. Apply Calmoseptine cream to involved areas. Apply Venelex ointment to any open areas not covered by barrier cream. Cover site with sacral foam dressing. Perform site care daily, and as needed for dressing soiling or dislodgment. Also recommend: Reposition patient side to side only every 2 hours with pillow support and off-load pressure areas with pillows for pressure re-distribution. Offload, elevate and float bilateral heels with one pillow lengthwise under each extremity at all times. Perform skin care and monitor skin integrity Q shift. Use Calmoseptine cream on buttocks and other moisture susceptible areas QID and as needed for soiling. Place patient on a low air-loss mattress.
--- NOTE | 2020-02-11 18:52 | NUR ---
CLOSING NOTE Patient resting in the bed. No acute distress. Denied of pain. Skin warm and dry to touch. IV intact to LAC and RFA, no redness, no swelling, patent. On D5 NS at 60ml/hr, infusing well. Left leg intact with surgical dressing and MELODY wrap, no bleeding noted. F/C intact, drain gravity. All needs met. Safety measure maintained. Call light within reached. Bed locked in low position, side rails up, bed alarm on. Will endorse to night nurse.
--- NOTE | 2020-02-11 19:45 | NUR ---
CHANGE OF SHIFT; assisted CENTRAL SUPPLY ASSISTANT to remove bedpan, no bm. repositioned and pulled up in bed with help. no resp. distress. call light within reach.
--- NOTE | 2020-02-11 20:45 | NUR ---
NOTES: pt. awake, alert and oriented. S/P ORIF left femur fracture.dressing on left upper thigh to mid led dry and intact. denies any discomfort at this time except for movement. IVF infusing via left antecubital. heel protectors on and sequentials in place. winters cath to osd. left leg wound and sacral with foam dressing.
--- NOTE | 2020-02-11 21:35 | NUR ---
NOTES: pt. been having the urge to have BM, placed bedpan 2x but no bm, passing gas only. pt. repositioned. Addendum: 02/11/20 at 2334 by Caroline Patrick RN late entry: BS checked 304 with sliding scale coverage.
--- NOTE | 2020-02-11 23:30 | NUR ---
NOTES: pt. checked still awake watching tv. no further complaints.
[2020-02-12] VITALS: BP_SYST 106
--- NOTE | 2020-02-12 00:30 | NUR ---
NOTES: pt. remain on supine position, HOB elevated. no resp. distress. IV lock on left ac.
--- NOTE | 2020-02-12 02:30 | NUR ---
NOTES: pt. checked and sleeping. condition observed. call light within reach.
--- NOTE | 2020-02-12 04:30 | NUR ---
NOTES; condition unchanged, continue to monitor. Addendum: 02/12/20 at 0505 by Caroline Patrick RN [id number] [facility] time
--- NOTE | 2020-02-12 04:40 | NUR ---
NOTES: due am care done. nagi care done. left leg dressing dry and intact with qamar wrap. sequentials on both heels/feet with heel protectors, able to wiggle toes. left leg wound changed and put foam dressing and transparent dressing. sacral dressing intact. IV lock on left antecubital. removed rt. side IV, appears red and swollen. noted left hand swollen. pt. needs attended. instructed on deep breathing and use of Incentive spirometer.
--- NOTE | 2020-02-12 05:35 | NUR ---
NOTES: pt. medicated with Morphine 2 mg IV as ordered. IV site flushed and keeps patent.
--- NOTE | 2020-02-12 06:37 | NUR ---
CLOSING NOTES; condition observed. no resp. distress. IV site patent. winters intact. needs further care and assistance. left leg dressing intact. will check BS. call light within reach, on fall risk precaution. will endorse to incoming shift.
[2020-02-12] MEDS: INSULIN REGULAR, HUMAN 100 UNITS/ML, 10 ML VIAL (humuLIN R) SUBCUT PRN ×4 (06:56→20:41)
--- NOTE | 2020-02-12 07:25 | NUR ---
OPENING NOTE Patient resting in the bed. No acute distress. AAO x 4. Denied of pain. Skin warm and dry to touch. SL intact to LAC, no redness, no swelling, patent. Left leg intact with surgical dressing and MELODY wrap, no bleeding noted. F/C intact, drain gravity. Safety measure maintained. Call light within reached. Bed locked in low position, side rails up, bed alarm on. Will continue to monitor.
[2020-02-12 08:00] VITALS: BP_SYST 121
[2020-02-12] MEDS: DILTIAZEM HCL 180 MG CAP.SR.24H PO SCH (09:09)
[2020-02-12] MEDS: ATENOLOL 50 MG TABLET (TENORMIN) PO SCH (09:10)
[2020-02-12] MEDS: ATORVASTATIN 20 MG TABLET PO SCH (09:10)
[2020-02-12] MEDS: LEVOTHYROXINE SODIUM 0.025 MG TABLET PO SCH (09:10)
[2020-02-12] MEDS: BALSAM PERU/CASTOR OIL 60 GM OINT...G. TP SCH (09:10)
[2020-02-12] MEDS: ENOXAPARIN SODIUM 40 MG/0.4 ML SYRINGE SUBCUT SCH (09:11)
--- NOTE | 2020-02-12 09:14 | NUR ---
AM SCHEDULE MED GIVEN. PATIENT TOLERATED WELL.
[2020-02-12] MEDS ORDERED: HYDROcodone/ACETAMIN 5-325 MG TAB (NORCO/ VICODIN) PO PRN (10:30)
--- NOTE | 2020-02-12 10:51 | NUR ---
SEEN AND EXAMINED BY JHONATAN SPRING WITH ORDER RECEIVED.
--- NOTE | 2020-02-12 11:01 | NUR ---
D/C BAGLEY CATHETER ORDERED WITH 200ML OUTPUT. PATIENT TOLERATED PROCEDURE WELL.
--- NOTE | 2020-02-12 11:03 | NUR ---
ATTENDING MD ORDERED TRANSFER TO SNF. MESSAGE RELAYED TO HCP/[employer] CM SUPERINTENDENT MAINTENANCE LEESA GUTIERREZ FOR PLACEMENT.
[2020-02-12] MEDS ORDERED: MENTHOL/ZINC OXIDE 113 GM OINT. TP PRN (12:30)
[2020-02-12 12:43] VITALS: BP_SYST 117
--- NOTE | 2020-02-12 13:06 | NUR ---
RECEIVED THE CALL FROM DR. GOYAL'S PA VINOD SANON UPDATED THE PATIENT'S HGB=9.6, HCT=28.6. ASKED IF THE PATIENT OK TO DISCHARGE. PER TALITA, PATIENT NEEDS TO SEE BY PT BEFORE DISCHARGE. WILL LET HER KNOW AFTER PT SEE THE PATIENT.
--- NOTE | 2020-02-12 13:34 | NUR ---
SEEN AND EXAMINED BY MOIZ ALANIS. PER DR. GOYAL, PATIENT OKAY TO DISCHARGE AFTER PT WORKING TO THE PATIENT TODAY.
[2020-02-12 16:29] VITALS: BP_SYST 118
--- NOTE | 2020-02-12 17:04 | NUR ---
PAGED PAGED JHONATAN RICE AT [phone] SPOKE WITH ERNESTO.
--- NOTE | 2020-02-12 17:12 | NUR ---
PT STILL NOT COME YET. CALLED AND INFORMED TO DR. QUIROZ WITH ORDER TO HOLD DISCHARGE.
--- NOTE | 2020-02-12 18:25 | NUR ---
P.T. NOTES P.T. EVAL COMPLETED; REFER TO EVAL FOR DETAILS; WILL BENEFIT W/ P.T. POST ACUTE STAY; NURSE REPORTS FOR P.T. STAFF TO CALL DR. VINOD Valenzuela (#[phone]), NOT WORKING NUMBER, NURSE NOTIFIED.
--- NOTE | 2020-02-12 18:58 | NUR ---
CLOSING NOTE Patient resting in the bed. No acute distress. Denied of pain. Skin warm and dry to touch. IV intact to LAC, no redness, no swelling, patent. Left leg intact with surgical dressing and MELODY wrap, no bleeding noted. All needs met. Safety measure maintained. Call light within reached. Bed locked in low position, side rails up, bed alarm on. Will endorse to night nurse.
--- NOTE | 2020-02-12 19:25 | NUR ---
CHANGE OF SHIFT; endorsed pt. suppose to be discharge waiting for Dr. Layne to call back. S/P ORIF left femur fracture. no resp. distress. call light within reach.
--- NOTE | 2020-02-12 19:40 | NUR ---
NOTES: charge nurse Brionna informed me that discharge is on hold per Dr. Christiansen, admissions dean for Dr. Layne, per day shift charge nurse Iliana. pt. informed that transfer cancelled until am. pt. was happy to stay for the night.
--- NOTE | 2020-02-12 20:10 | NUR ---
CALLED DR. GOYAL'S PA TALITA VINOD , LEFT MESSAGE IN VOICE MAIL. INFORMED PATIENT SEEN BY PT BUT THE PATIENT UNABLE TO STAND.
[2020-02-12 20:30] VITALS: BP_SYST 132
--- NOTE | 2020-02-12 20:40 | NUR ---
NOTES: VS checked. BS 325 with sliding scale coverage. IV lock on left ac. on room air, no sob, instructed on deep breathing and use of IS. left leg dressing intact with qamar wrap. able to wiggle toes. both heels with sequentials in place. winters removed today. pt. using bedpan. call light within reach.
--- NOTE | 2020-02-12 22:15 | NUR ---
NOTES: pt. remains awake, watching tv. pt. needs attended. no complaints of pain at this time.
--- NOTE | 2020-02-12 23:45 | NUR ---
NOTES: pt. awakened for VS. no complaints manifested. call light within reach.
--- NOTE | 2020-02-13 01:10 | NUR ---
NOTES: pt. asleep. call light within reach. bed rest maintained.
[2020-02-13 01:16] VITALS: BP_SYST 130
--- NOTE | 2020-02-13 02:02 | NUR ---
NOTES: pt, awake and using bedpan with CO FOUNDER AND CHIEF STRATEGY OFFICER assist. condition observed.
--- NOTE | 2020-02-13 04:00 | NUR ---
NOTES: all wounds pictures taken, changed dressing on sacra/buttock area, left inner thigh, rt. lower inner leg. both feet great toes wit scab and discoloration, keep open toair. no wound on occipital area noted, nurse Tray also checked. bed price used and voided/nagi care done after. pt. able to help turn and pulled up in bed.
--- NOTE | 2020-02-13 05:30 | NUR ---
NOTES: left leg dressing dry and intact. IV lock intact. no further complaints.
--- NOTE | 2020-02-13 06:20 | NUR ---
NOTES: pt. called to use bedpan and voided, CHILD PSYCHOLOGIST helped to remove bedpan, nagi care done.
[2020-02-13] MEDS: INSULIN REGULAR, HUMAN 100 UNITS/ML, 10 ML VIAL (humuLIN R) SUBCUT PRN ×2 (06:41→11:15)
--- NOTE | 2020-02-13 06:57 | NUR ---
CLOSING NOTES; BS checked 177,sliding scale coverage given. IV lock on left ac. needs attended. fo discharge today after PT notes seen by ortho MD or PA. discharge documents in the envelope. for further care and assist. call light within reach, on fall risk precaution.
--- NOTE | 2020-02-13 07:30 | NUR ---
OPENING NOTES: RECEIVED PATIENT FROM CELL MAKER NURSE. PATIENT IS AWAKE AND ALERT x4 LAYING DOWN IN BED. PATIENT IS TOLERATING OXYGEN ON ROOM AIR WITH NO SIGNS OF DISTRESS OR SHORTNESS OF BREATH NOTED. IV SITE IS PATENT WITH NO SIGNS OF INFILTRATION NOTED. PATIENT DENIES ANY PAIN AT THE MOMENT. PATIENT IN STABLE CONDITION. SAFETY, FALL AND ASPIRATION PRECAUTIONS ARE IN PLACE. BED LOCKED IN LOWEST POSITION WITH CALL LIGHT IN REACH. WILL CONTINUE TO MONITOR PATIENT FOR ANY CHANGES.
[2020-02-13] MEDS: ATORVASTATIN 20 MG TABLET PO SCH (08:49)
[2020-02-13] MEDS: ATENOLOL 50 MG TABLET (TENORMIN) PO SCH (08:49)
[2020-02-13] MEDS: DILTIAZEM HCL 180 MG CAP.SR.24H PO SCH (08:49)
[2020-02-13] MEDS: LEVOTHYROXINE SODIUM 0.025 MG TABLET PO SCH (08:49)
[2020-02-13] MEDS: BALSAM PERU/CASTOR OIL 60 GM OINT...G. TP SCH (08:50)
[2020-02-13] MEDS: ENOXAPARIN SODIUM 40 MG/0.4 ML SYRINGE SUBCUT SCH (08:51)
[2020-02-13 08:57] VITALS: BP_SYST 127
--- NOTE | 2020-02-13 10:08 | NUR ---
RN ROUNDS: PATIENT IS AWAKE AND ALERT X4 LAYING DOWN IN BED. PATIENT DENIES ANY PAIN AT THE MOMENT. PATIENT WAS ASSISTED OFF THE BEDPAN, CLEANED, CHANGED AND REPOSITIONED. PATIENT TOLERATED IT WELL. PATIENT IS TOLERATING OXYGEN ON ROOM AIR WITH NO SIGNS OF DISTRESS OR SHORTNESS OF BREATH NOTED. IV SITE IS PATENT WITH NO SIGNS OF INFILTRATION NOTED. PATIENT IN STABLE CONDITION. WILL CONTINUE TO MONITOR PATIENT FOR ANY CHANGES.
[2020-02-13 10:36] VITALS: BP_SYST 126
--- NOTE | 2020-02-13 10:45 | NUR ---
ARRANGED S TRANSPORT FOR A 1300 CALIBRATION SPECIALIST WITH [facility] GOING TO [facility], [address]. SPOKE WITH YOSELIN.
--- NOTE | 2020-02-13 12:20 | NUR ---
RN ROUNDS: PATIENT IS AWAKE AND ALERT x4 LAYING DOWN IN BED. PATIENT IS TOLERATING OXYGEN ON ROOM AIR WITH NO SIGNS OF DISTRESS OR SHORTNESS OF BREATH NOTED. IV SITE REMOVED AT THIS TIME. IV CATHETER INTACT AND NO ACTIVE BLEEDING NOTED. PATIENT IN STABLE CONDITION. WILL CONTINUE TO MONITOR PATIENT FOR ANY CHANGES. WILL CONTINUE TO MONITOR PATIENT FOR ANY CHANGES.
[2020-02-13 12:37] VITALS: BP_SYST 126
--- NOTE | 2020-02-13 14:15 | NUR ---
PT TRANSFERRED: Report given to Cinthya at [facility]. Transfer packet with Transfer Orders and Medication Reconciliation form given to EMT with report. Exit care provided. [facility] ID band removed, replaced with ID band with pt's name and . IV catheter previously removed, no active bleeding. All belongings sent with patient. Patient left floor via gurney escorted by EMT in no distress.
== END 2020-02-13 14:15 | DRG 480 ==
LOC: SED 17:43 → SMU 22:06
PROVIDERS: ADMIT Internal Medicine Hospice and Palliative Medicine; ATTEND Internal Medicine Hospice and Palliative Medicine
PROC: 30233N1 Transfusion of Nonautologous Red Blood Cells into Peripheral Vein, Percutaneous Approach (ICD-10-PCS; 2020-02-10)
PROC: 0QHC36Z Insertion of Intramedullary Internal Fixation Device into Left Lower Femur, Percutaneous Approach (ICD-10-PCS; principal; 2020-02-10 14:00)
DX: S72.402A Unspecified fracture of lower end of left femur, initial encounter for closed fracture (principal); N17.0 Acute kidney failure with tubular necrosis; Z68.43 Body mass index [BMI] 50.0-59.9, adult; I12.9 Hypertensive chronic kidney disease with stage 1 through stage 4 chronic kidney disease, or unspecified chronic kidney disease; N18.9 Chronic kidney disease, unspecified; E11.22 Type 2 diabetes mellitus with diabetic chronic kidney disease; E66.01 Morbid (severe) obesity due to excess calories; E78.5 Hyperlipidemia, unspecified; W18.30XA Fall on same level, unspecified, initial encounter; Z20.828 Contact with and (suspected) exposure to other viral communicable diseases; X58.XXXA Exposure to other specified factors, initial encounter; Y93.89 Activity, other specified; Y99.8 Other external cause status; Y92.009 Unspecified place in unspecified non-institutional (private) residence as the place of occurrence of the external cause; Z74.01 Bed confinement status
CPT/HCPCS: 36415; 70450-TC; 71045; 72192-TC; 73560-TC; 73700-TC; 76000; 76376; 80048; 80053; 81000-TC; 82962; 85025; 85610-TC; 85730-TC; 86886; 86900; 86901; 86920; 87081; 87086; 93005; 93306; 94010; 96360; 96372; 97112-GP; 97163; 99285; C1713; J0690; J0696; J1170; J1650; J1815; J2001; J2060; J2270; J2370; J2405; J2765; J3010; J3490; J7030; J7042; J7050; P9021